=== PATIENT | male | born 1980 | race Caucasian/White ===

== ENCOUNTER 2022-02-09 17:18 | Emergency (ER) | payer MEDICARE, SELFPAY ==
[2022-02-09 17:33] VITALS: BP 145/89; PULSE 69; RESP 18; TEMP 37.1; O2SAT 98; BMI 28.8
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
== END 2022-02-09 19:11 | disposition home or self-care (01) ==
PROVIDERS: Emergency Provider Emergency Medicine; PCP Nurse Practitioner Family
DX: Z04.1 Encounter for examination and observation following transport accident (principal); T14.8XXA Other injury of unspecified body region, initial encounter; Z79.82 Long term (current) use of aspirin; F17.210 Nicotine dependence, cigarettes, uncomplicated; V49.40XA Driver injured in collision with unspecified motor vehicles in traffic accident, initial encounter
CPT/HCPCS: 71046; 72170; 99282

== ENCOUNTER 2022-05-31 13:00 | Emergency (ER) | payer MEDICARE, SELFPAY ==
--- NOTE | 2022-05-31 13:07 | XR_ITS ---
WS: [id number] Portable PA upright chest, 05/31/2022 Clinical Data: chest pain Comparison: Two-view chest, 02/09/2022. Findings: No nodules, masses or effusions are seen. The heart is normal. The pulmonary vascularity is not increased. No pneumonia or pneumothorax is seen. XR/XR chest 1V portable [id number] Impression: Negative chest.
--- NOTE | 2022-05-31 13:07 | ECG_ITS ---
[facility] Test Date: 2022-05-31 Pat Name: Jacobo Odom Department: Room: Gender: Male Town Manager: : 1980 Requested By: Katharine Khanna Order Number: [id number] Wilma MD: Aravind Wolfe M.D. Measurements Intervals [place] Rate: 52 P: 23 ME: 168 QRS: 26 QRSD: 94 T: 34 QT: 394 QTc: 369 Interpretive Statements SINUS BRADYCARDIA No previous ECG available for comparison Electronically Signed On 05-31-2022 18:14:51 CDT by Aravind Wolfe M.D. [id number]
[2022-05-31 13:08] VITALS: BP 136/78; PULSE 66; RESP 18; TEMP 36.9; O2SAT 99; BMI 26.4
--- NOTE | 2022-05-31 14:51 | W.ED.CHESTPA ---
HPI - Chest Pain General: Chief Complaint: Chest Pain Stated Complaint: Chest pains, Low heart rate, sob, arms numb Time Seen by Provider: 05/31/22 14:39 Source: patient Mode of arrival: ambulatory Limitations: no limitations History of Present Illness: 41-year-old male presents emergency room complaining of chest pain intermittently for the last 3 days. He also has been having some numbness in his arms. Patient has a history of a previous cerebral artery dissection he has no long-term sequela from that. He is reporting chest pain and left side of his chest at times going into his shoulder. He has no known history of coronary artery disease. He recently had been taking opioids and stopped he has been trying to increase his physical activity level he done a lot of anaerobic work in the past week. He is not have any chest pain with palpation across the chest. A week ago he had an episode with pain radiating into the jaw. Also had a few episodes was woken up in the middle the night both of his arms have felt numb. All the symptoms seem to resolve spontaneously with physical activity he has not had any increase in chest pain. He states he shoveled 15 tons of gravel and never had any chest pain earlier this week. MD complaint: chest pain Onset (ago): day(s) (4) Timing of current episode: episodic Prior episodes: Yes Onset: during rest Pain location: left chest Pain radiation: right arm, left arm, neck and jaw/teeth Severity: mild Quality: tightness, aching and heaviness Relieving factors: nothing Exacerbating factors: nothing Associated symptoms: Deny abdominal pain, diaphoresis, dyspnea, fever(s), leg edema, nausea, palpitations, sense of impending doom, syncope or vomiting Treatment prior to arrival: none Review of Systems Const: Denies: fever(s), chills, fatigue, malaise or diaphoresis ENMT: Denies: throat pain, ear or mastoid pain, nasal discharge or nasal congestion Card: Reports: chest pain; Denies: palpitations, irregular heart rhythm, edema, swelling of feet/ankles or syncope Resp: Denies: dyspnea, productive cough, non-productive cough or wheezing GI: Denies: abdominal pain, nausea or vomiting : Denies: flank pain, difficulty urinating, dysuria, urinary frequency or urinary urgency Musc: Reports: neck pain Skin/Breast: Denies: rash or pruritus [facility] ED PFSH: Medical History Brain aneurysm Chronic back pain Hypertension Hypokalemia Mitral valve prolapse Osteogenesis imperfecta Scoliosis Vertebral artery dissection Vitamin D deficiency Social History Smoking and tobacco status: current every day smoker cigarettes Alcohol intake: never Physical Exam Const: GENERAL APPEARANCE: cooperative and comfortable ORIENTATION/CONSCIOUSNESS: Yes awake, Yes oriented to person, Yes oriented to place and Yes oriented to time HENMT: COMMON NORMALS: normocephalic, atraumatic and hearing grossly normal bilaterally HEAD & SCALP: normocephalic and atraumatic Neck/C-Spine: COMMON NORMALS: no JVD Resp: COMMON NORMALS: normal respiratory effort, No retractions, No use of accessory muscles and clear to auscultation bilaterally AUSCULTATION: clear to auscultation bilaterally Cardio: COMMON NORMALS: no JVD, regular rate, regular rhythm and No murmurs present (Cardio) RATE: regular rate RHYTHM: regular rhythm GI: COMMON NORMALS: Soft to palpation and No hepatosplenomegaly present AUSCULTATION: Yes normoactive bowel sounds PALPATION: Yes Soft to palpation, No Tenderness to palpation present (GI), No Guarding due to palpation present (GI) and Yes No hepatosplenomegaly present Extremity: COMMON NORMALS: normal to inspection, capillary refill normal, no clubbing, cyanosis or edema, no calf tenderness and no pedal edema Neuro: SENSORIUM/ORIENTATION: Yes oriented to person, Yes oriented to place and Yes oriented to time Skin: COMMON NORMALS: no rashes or lesions noted GENERAL SKIN EXAM: no rashes or lesions noted Course Vital Signs: Vital signs: Vital Signs Temperature 98.5 F 05/31/22 13:08 Pulse Rate 66 05/31/22 13:08 Respiratory Rate 18 05/31/22 13:08 Blood Pressure 136/78 05/31/22 13:08 Pulse Oximetry 99 05/31/22 13:08 MDM - Chest Pain Medical Decision Making Labs imaging and EKGs reviewed no acute changes we will discharge patient home set up outpatient cardiac stress testing advised taking baby aspirin daily return if has problems. Medical Records I reviewed the patient's medical records. Lab Data I reviewed the patient's lab results. : 05/31/22 15:00 05/31/22 15:00 Radiology Impressions Chest X-Ray 05/31/22 13:07 Impression: Negative chest. Laboratory Results WBC 9.5 10^3/uL (4.0-10.0) 05/31/22 15:00 RBC 5.03 10^6/uL (4.1-5.3) 05/31/22 15:00 Hgb 15.4 g/dL (11.7-16.6) 05/31/22 15:00 Hct 45.2 % (42.0-52.0) 05/31/22 15:00 MCV 89.9 fl (80-94) 05/31/22 15:00 MCH 30.6 pg (28.0-34.0) 05/31/22 15:00 MCHC 34.1 g/dL (30.0-36.0) 05/31/22 15:00 RDW 12.5 % (12.1-15.1) 05/31/22 15:00 Plt Count 354 10^3/cmm (130-400) 05/31/22 15:00 MPV 8.5 fL (7.4-10.4) 05/31/22 15:00 Neut % (Auto) 67.5 % 05/31/22 15:00 Lymph % (Auto) 25.2 % 05/31/22 15:00 Woods % (Auto) 5.7 % 05/31/22 15:00 Eos % (Auto) 0.8 % 05/31/22 15:00 Baso % (Auto) 0.5 % 05/31/22 15:00 Neut # (Auto) 6.41 10^3/uL (1.8-7.7) 05/31/22 15:00 Lymph # (Auto) 2.4 10^3/uL (0.8-4.8) 05/31/22 15:00 Woods # (Auto) 0.5 10^3/uL (0.2-0.9) 05/31/22 15:00 Eos # (Auto) 0.1 10^3/uL (0.0-0.8) 05/31/22 15:00 Baso # (Auto) 0.1 10^3/uL (0.0-0.1) 05/31/22 15:00 Nucleated RBC % (auto) 0 % 05/31/22 15:00 Nucleated RBCs # 0.0 /100WBC 05/31/22 15:00 Sodium 137 mmol/L (136-145) 05/31/22 15:00 Potassium 3.8 mmol/L (3.5-5.1) 05/31/22 15:00 Chloride 98 mmol/L (98-107) 05/31/22 15:00 Carbon Dioxide 24 mmol/L (22-29) 05/31/22 15:00 Anion Gap 18.8 (5-19) 05/31/22 15:00 BUN 12 mg/dL (6-20) 05/31/22 15:00 Creatinine 0.7 mg/dL (0.7-1.2) 05/31/22 15:00 GFR Calculation 123.1 mL/min (90-130) 05/31/22 15:00 Glucose 92 mg/dL (65-115) 05/31/22 15:00 Calculated Osmolality 283 mOsm/kg (285-295) L 05/31/22 15:00 Calcium 9.0 mg/dL (8.5-10.5) 05/31/22 15:00 Total Bilirubin 0.3 mg/dL (0.15-1.2) 05/31/22 15:00 AST 16 U/L (0-40) 05/31/22 15:00 ALT 18 U/L (0-41) 05/31/22 15:00 Alkaline Phosphatase 95 IU/L (40-130) 05/31/22 15:00 Troponin T Baseline 6 ng/L (0-15) 05/31/22 15:00 Total Protein 7.2 g/dL (6.6-8.7) 05/31/22 15:00 Albumin 4.4 g/dL (3.5-5.2) 05/31/22 15:00 Globulin 2.8 g/dL (1.3-4.6) 05/31/22 15:00 Discharge Plan Discharge Patient Disposition: Home Clinical Impression: Atypical chest pain Condition: Stable Prescriptions: No Action morphine 15 mg tablet extended release 15 mg PO Q12H PRN (Reason: Pain) 0RF hydrocodone-acetaminophen 10-325 mg tablet 1 tab PO Q4H PRN (Reason: Pain) 0RF aspirin [Adult Low Dose Aspirin] 81 mg tablet,delayed release (DR/EC) 81 mg PO DAILY 0RF testosterone 20.25 mg/1.25 gram (1.62 %) gel in metered-dose pump See Rx Instructions .ROUTE .COMPLEX 0RF Rx Instructions: DIRECTED metoprolol succinate 50 mg tablet extended release 24 hr 25 mg PO DAILY 0RF lisinopril 10 mg tablet 5 mg PO DAILY 0RF hydrochlorothiazide 25 mg tablet 12.5 mg PO DAILY 0RF Discharge Orders: Discharge ED (Routine); Ordered 05/31/22 Ordered By: Parvez Wilson Referrals: Dakota Rojas FNP [Primary Care Provider] - Discharge Diet: Usual diet Discharge Activity: Limit activity as instructed Patient Instructions: Opioid Safety Activity Restrictions/Additional Instructions: Avoid exertional activity. transportation project manager will call make arrangements for her to have a graded exercise stress test. 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
[2022-05-31 15:02] LABS: Basophils # 0.1 10^3/uL (0.0-0.1); Basophils % 0.5 %; Eosinophils # 0.1 10^3/uL (0.0-0.8); Eosinophils % 0.8 %; Hematocrit 45.2 % (42.0-52.0); Hemoglobin 15.4 g/dL (11.7-16.6); Lymphocytes # 2.4 10^3/uL (0.8-4.8); Lymphocytes % 25.2 %; Mean Corpuscular HGB Conc 34.1 g/dL (30.0-36.0); Mean Corpuscular Hemoglobin 30.6 pg (28.0-34.0); Mean Corpuscular Volume 89.9 fl (80-94); Mean Platelet Volume 8.5 fL (7.4-10.4); Monocytes # 0.5 10^3/uL (0.2-0.9); Monocytes % 5.7 %; Neutrophils # 6.41 10^3/uL (1.8-7.7); Neutrophils % 67.5 %; Nucleated Red Blood Cells % 0 %; Platelet Count 354 10^3/cmm (130-400); Red Blood Count 5.03 10^6/uL (4.1-5.3); Red Cell Distribution Width 12.5 % (12.1-15.1); White Blood Count 9.5 10^3/uL (4.0-10.0)
--- NOTE | 2022-05-31 15:07 | ECG_ITS ---
[facility] Test Date: 2022-05-31 Pat Name: Jacobo Odom Department: Room: Gender: Male Director Of Safety: : 1980 Requested By: Katharine Khanna Order Number: [id number] Wilma MD: Aravind Wolfe M.D. Measurements Intervals [place] Rate: 52 P: 23 IN: 168 QRS: 26 QRSD: 94 T: 34 QT: 394 QTc: 369 Interpretive Statements SINUS BRADYCARDIA No previous ECG available for comparison Electronically Signed On 05-31-2022 18:18:51 CDT by Aravind Wolfe M.D. [id number]
[2022-05-31 15:21] LABS: Alanine Aminotransferase 18 U/L (0-41); Albumin Level 4.4 g/dL (3.5-5.2); Alkaline Phosphatase 95 IU/L (40-130); Aspartate Amino Transferase 16 U/L (0-40); Blood Urea Nitrogen 12 mg/dL (6-20); Carbon Dioxide 24 mmol/L (22-29); Chloride 98 mmol/L (98-107); Globulin 2.8 g/dL (1.3-4.6); Glomerular Filtration Rate 123.1 mL/min (90-130); Glucose 92 mg/dL (65-115); Osmolality Calculated 283 mOsm/kg (285-295); Sodium 137 mmol/L (136-145); Total Bilirubin 0.3 mg/dL (0.15-1.2); Total Protein 7.2 g/dL (6.6-8.7)
[2022-05-31 15:22] LABS: Troponin(5th) Baseline 6 ng/L (0-15)
[2022-05-31 15:26] LABS: Anion Gap 18.8 (5-19); Potassium 3.8 mmol/L (3.5-5.1)
--- NOTE | 2022-06-04 09:41 | DCPLANNER ---
Addendum entered by Mara Escobar 12/03/22 12:44: Patient had a stress test scheduled - patient did not attend appointment Original Note: commercial account manager had message to schedule an outpatient stress test for patient. commercial account manager faxed signed order to centralized scheduling, who will call patient with appointment information.
== END 2022-05-31 16:24 | disposition home or self-care (01) ==
PROVIDERS: Physician Assistant; Emergency Provider Family Medicine; PCP Nurse Practitioner Family
DX: R07.89 Other chest pain (principal); I10 Essential (primary) hypertension
CPT/HCPCS: 71045; 80053; 84484; 85025; 93005; 99285

== ENCOUNTER → 2023-09-15 10:18 | Outpatient (BNVA) | payer MEDICARE, SELFPAY | PROVIDERS: PCP Nurse Practitioner; Referring Provider Family Medicine; Visit Provider Internal Medicine Cardiovascular Disease | DX: R07.89 Other chest pain (principal) | CPT/HCPCS: 93005 ==

== ENCOUNTER 2023-09-15 11:54 | Emergency (ER) | payer MEDICARE, SELFPAY ==
[2023-09-15 12:01] VITALS: BMI 27.2
[2023-09-15 12:02] VITALS: BP 145/87; PULSE 84; RESP 16; TEMP 37.1; O2SAT 98
--- NOTE | 2023-09-15 12:26 | XR_ITS ---
WS: [id number] Exam: XR femur LT min 2V* [id number] Date/Time of Exam: 09/15/2023 12:42 PM Reason For Exam: injury No acute fracture noted. Old femoral fractures identified with intramedullary connie. Soft tissues are u nremarkable. IMPRESSION: 1. No acute fracture. Old fracture deformities with femoral hardware.
--- NOTE | 2023-09-15 12:57 | ED_ITS ---
HPI - Extremity Injury (Lower) General: Chief Complaint: Extremity Injury, Lower Stated Complaint: left leg injury Time Seen by Provider: 09/15/23 12:36 Source: patient Mode of arrival: ambulatory (with crutches) Limitations: no limitations History of Present Illness: Patient is a 43-year-old male who presents to ED today with a complaint of left upper leg pain that he sustained following a fall approximately 3 days ago. Patient states he has a history of osteogenesis imperfecta and has bilateral femoral rods. Patient states he is concerned he possibly fractured his distal femur around his connie. Patient has been wearing his hinged brace as well as using crutches. complaint: thigh injury Onset (ago): day(s) Injury: Left: thigh Place: home Severity: moderate Relieving factors: immobilization Exacerbating factors: weight bearing, movement and palpation Context: fall Associated symptoms: Reports inability to bear weight Other symptoms: none Treatments prior to arrival: splint Review of Systems Musc: Reports: extremity pain; Denies: neck pain, back pain, extremity swelling, joint pain, joint swelling, joint redness or joint warmth Neuro: Denies: numbness in extremities or sensory changes PFSH ED PFSH: Medical History Brain aneurysm Chronic back pain Hypertension Hypokalemia Mitral valve prolapse Osteogenesis imperfecta Scoliosis Vertebral artery dissection Vitamin D deficiency Social History Smoking and tobacco/nicotine status: current every day tobacco/nicotine user cigarettes Quit status (tobacco/nicotine): has quit using Year quit tobacco: 2013 Alcohol intake: never Substance/Drug Use: former Physical Exam Const: COMMON NORMALS: no acute distress, patient oriented x3, no limitations and alert GENERAL APPEARANCE: cooperative Extremity: COMMON NORMALS: capillary refill normal, no joint enlargement, no clubbing, cyanosis or edema, no calf tenderness and no pedal edema GENERAL: Yes normal exam except as noted LEFT LOWER EXTREMITY: Yes upper leg (TTP distal femur; no bony abnormality appreciated) Left upper leg: Yes neurovascular exam (normal) OTHER: normal L hip/knee examination Neuro: COMMON NORMALS: patient oriented x3, moves all extremities, no focal motor deficits and no sensory deficits noted SENSORIUM/ORIENTATION: Yes alert Course Vital Signs: Vital signs: Vital Signs Temperature 98.8 F 09/15/23 12:02 Pulse Rate 84 09/15/23 12:02 Respiratory Rate 16 09/15/23 12:02 Blood Pressure 145/87 09/15/23 12:02 Pulse Oximetry 98 09/15/23 12:02 Oxygen Delivery Me thod Room Air, Nasal C annula 09/15/23 12:02 MDM - Extremity Injury (Lower) Medical Decision Making XR negative. Patient will be recommended to continue using brace/crutches as needed. He can follow up with PCP or orthopedics if symptoms do not improve with conservative therapies. All radiology interpretation(s) finalized by discharge Discharge Plan Discharge Patient Disposition: Home Clinical Impression: Injury of left leg Qualifiers: Encounter type: initial encounter Qualified Code(s): S89.92XA - Unspecified injury of left lower leg, initial encounter Condition: Stable Prescriptions: No Action aspirin [Adult Low Dose Aspirin] 81 mg tablet,delayed release (DR/EC) 81 mg PO DAILY nitroglycerin 0.3 mg tablet, sublingual 0.3 mg sublingual Q5M PRN (Reason: chest pain) Qty: 30 0RF Rx Instructions: do not exceed 3 doses per episode testosterone 20.25 mg/1.25 gram (1.62 %) gel in metered-dose pump See Rx Instructions .ROUTE .COMPLEX Rx Instructions: DIRECTED lisinopril 10 mg tablet 5 mg PO DAILY Discharge Orders: Discharge ED (Routine); Ordered 09/15/23 Ordered By: Katharine Khanna Referrals: Rosemary Lemus, SAW OFFBEARER [Primary Care Provider] - Coding Level of Care Code ED 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
== END 2023-09-15 14:05 | disposition home or self-care (01) ==
PROVIDERS: Emergency Provider Physician Assistant; PCP Nurse Practitioner
DX: S89.92XA Unspecified injury of left lower leg, initial encounter (principal); Z79.82 Long term (current) use of aspirin; F17.210 Nicotine dependence, cigarettes, uncomplicated; I10 Essential (primary) hypertension; W19.XXXA Unspecified fall, initial encounter; R07.89 Other chest pain; I34.1 Nonrheumatic mitral (valve) prolapse; I67.1 Cerebral aneurysm, nonruptured
CPT/HCPCS: 73552; 99204; 99283

== ENCOUNTER 2023-12-23 11:34 | Emergency (ER) | payer MEDICARE, SELFPAY ==
[2023-12-23] VITALS (7 sets, daily range): BP systolic 120–169; BP diastolic 83–108; PULSE 61–98; RESP 16–18; TEMP 36.6; O2SAT 95–97; BMI 27.9
--- NOTE | 2023-12-23 11:52 | ED_ITS ---
HPI - Male Genitourinary 2 General: Chief complaint: Urogenital-Male Stated complaint: left side back pain Time Seen by Provider: 12/23/23 11:50 History of Present Illness: 43-year-old male presents emergency depa rtment with complaints of left flank and low back pain for the previous 5 days. He states he is also had intermittent nausea. He states he has a history of osteogenesis imperfecta with multiple fractures. He states that his pain to his back is a 5 out of 10. He states it is a dull aching pain Review of Systems 2 General: Reports: 10 or more systems reviewed and unremarkable except in HPI and below Musc: Reports: back pain PFSH ED 2 PFSH: Medical History Hypertension Osteogenesis imperfecta Mitral valve prolapse Chronic back pain Vertebral artery dissection Scoliosis Brain aneurysm Hypokalemia Vitamin D deficiency Social History Smoking and tobacco/nicotine status: current every day tobacco/nicotine user cigarettes Quit status (tobacco/nicotine): has quit using Year quit tobacco: 2013 Alcohol intake: never Substance/Drug Use: former Physical Exam 2 Narrative: EXAM NARRATIVE: Constitutional: the patient appears well nourished and of normal development. Vital signs as documented. No acute distress at present. Alert and oriented-to person, place, time and situation. Head, eyes, ears, nose, mouth, throat: Normocephalic, atraumatic. Pupils-equal, round, reactive to light. No scleral icterus. Normal-appearing external ears. Normal appearing nasal turbinates, no drainage. No obvious oral lesions, posterior oropharynx without erythema or exudates. Neck: Supple, trachea is midline, no lymphadenopathy, no jugular venous distension, thyromegaly, or carotid bruits. Carotid upstrokes are brisk bilaterally. Lungs: clear to auscultation to all lung shaffer. Symmetrical rise and fall of chest, no obvious signs of increased work of breathing at present. Cardiac: Regular rate and rhythm, positive S1, S2. No murmurs, rubs or gallops that I can appreciate Abdomen: Soft, non-tender to palpation, normal active bowel sounds to all quadrants. No palpable masses, no organomegaly and abdominal bruits. Extremities: 2+ pulses in the upper extremities that are equal bilaterally, 2+ pulses in the lower extremities that are equal bilaterally. Non-edematous. Moves all extremities well, sensation to all extremities are noted. Skin: Warm, dry, intact. Back: Symmetrical, normal alignment, no crepitus, no palpable step-offs, there is edema to the left flank area with no obvious signs of trauma. Course 2 Vital Signs: Vital signs: Vital Signs Temperature 97.9 F 12/23/23 11:47 Pulse Rate 98 12/23/23 12:13 Respiratory Rate 18 12/23/23 12:13 Blood Pressure 157/108 12/23/23 12:13 Pulse Oximetry 96 12/23/23 12:13 Oxygen Delivery Me thod Room Air 12/23/23 11:47 MDM - Male Medical Decision Making Physical exam completed and documented, CT scan findings discussed with the patient. I did order a CBC and CMP to evaluate the patient's infectious status and renal function. Medical Records I reviewed the patient's medical records. Lab Data I reviewed the patient's lab results. 12/23/23 12:07 12/23/23 12:07 Laboratory Results WBC 9.48 10^3/uL (3.29-11.43) 12/23/23 12:07 RBC 5.36 10^6/uL (3.85-5.65) 12/23/23 12:07 Hgb 16.60 g/dL (11.27-16.99) 12/23/23 12:07 Hct 47.7 % (37-53) 12/23/23 12:07 MCV 89.0 fl (82-101) 12/23/23 12:07 MCH 31.0 pg (27-33) 12/23/23 12:07 MCHC 34.8 g/dL (30-55) 12/23/23 12:07 RDW 11.9 % (12.1-15.1) L 12/23/23 12:07 Plt Count 369 10^3/cmm (157-399) 12/23/23 12:07 MPV 8.3 fL (7.4-10.4) 12/23/23 12:07 Neut % (Auto) 73.0 % 12/23/23 12:07 Lymph % (Auto) 19.8 % 12/23/23 12:07 [place] % (Auto) 6.2 % 12/23/23 12:07 Eos % (Auto) 0.4 % 12/23/23 12:07 Baso % (Auto) 0.4 % 12/23/23 12:07 Neut # (Auto) 6.91 10^3/uL (1.8-7.7) 12/23/23 12:07 Lymph # (Auto) 1.9 10^3/uL (0.8-4.8) 12/23/23 12:07 [place] # (Auto) 0.6 10^3/uL (0.2-0.9) 12/23/23 12:07 Eos # (Auto) 0.0 10^3/uL (0.0-0.8) 12/23/23 12:07 Baso # (Auto) 0.0 10^3/uL (0.0-0.1) 12/23/23 12:07 Nucleated RBC % (auto) 0 % 12/23/23 12:07 Nucleated RBCs # 0.0 /100WBC 12/23/23 12:07 Sodium 137 mmol/L (136-145) 12/23/23 12:07 Potassium 3.9 mmol/L (3.5-5.1) 12/23/23 12:07 Chloride 99 mmol/L (98-107) 12/23/23 12:07 Carbon Dioxide 25 mmol/L (22-29) 12/23/23 12:07 Anion Gap 16.9 (5-19) 12/23/23 12:07 BUN 10 mg/dL (6-20) 12/23/23 12:07 Creatinine 0.7 mg/dL (0.7-1.2) 12/23/23 12:07 GFR Calculation 122.0 mL/min (90-130) 12/23/23 12:07 Glucose 110 mg/dL (65-115) 12/23/23 12:07 Calculated Osmolality 284 mOsm/kg (285-295) L 12/23/23 12:07 Calcium 9.7 mg/dL (8.5-10.5) 12/23/23 12:07 Total Bilirubin 0.3 mg/dL (0.15-1.2) 12/23/23 12:07 AST 17 U/L (0-40) 12/23/23 12:07 ALT 25 U/L (0-41) 12/23/23 12:07 Alkaline Phosphatase 103 U/L (40-130) 12/23/23 12:07 Total Protein 8.0 g/dL (6.6-8.7) 12/23/23 12:07 Albumin 4.8 g/dL (3.5-5.2) 12/23/23 12:07 Globulin 3.2 g/dL (1.3-4.6) 12/23/23 12:07 Urine Color Yellow (Yellow) 12/23/23 11:34 Urine Appearance Clear (CLEAR) 12/23/23 11:34 Urine pH 6 (5-7) 12/23/23 11:34 Ur Specific [place] 1.020 (1.005-1.030) 12/23/23 11:34 Urine Protein Neg (Negative) 12/23/23 11:34 Urine Glucose (UA) Norm (Normal) 12/23/23 11:34 Urine Ketones Negative (Negative) 12/23/23 11:34 Urine Blood 2+ (Negative) H 12/23/23 11:34 Urine Nitrate Negative (Negative) 12/23/23 11:34 Urine Bilirubin Neg (Negative) 12/23/23 11:34 Urine Urobilinogen Norm mg/dL (Negative) 12/23/23 11:34 Ur Leukocyte Esterase Negative (Negative) 12/23/23 11:34 Urine RBC 0-4 /hpf (0-2) H 12/23/23 11:34 Urine WBC None /hpf (0-5) 12/23/23 11:34 Ur Squamous Epith Cells 0-4 /hpf (0-5) H 12/23/23 11:34 Amorphous Sediment Not Reportable 12/23/23 11:34 Urine Bacteria None /hpf (NONE) 12/23/23 11:34 Urine Mucus None /hpf 12/23/23 11:34 All radiology interpretation(s) finalized by discharge Discharge Plan Discharge Patient Disposition: Home Clinical Impression: Hematuria, Low back pain Condition: Stable Prescriptions: New naproxen 500 mg tablet 500 mg PO Q12H PRN (Reason: pain) Qty: 20 0RF cyclobenzaprine 10 mg tablet 10 mg PO Q8H Qty: 14 0RF No Action aspirin [Adult Low Dose Aspirin] 81 mg tablet,delayed release (DR/EC) 81 mg PO DAILY nitroglycerin 0.3 mg tablet, sublingual 0.3 mg sublingual Q5M PRN (Reason: chest pain) Qty: 30 0RF Rx Instructions: do not exceed 3 doses per episode testosterone 20.25 mg/1.25 gram (1.62 %) gel in metered-dose pump See Rx Instructions .ROUTE .COMPLEX Rx Instructions: DIRECTED lisinopril 10 mg tablet 10 mg PO DAILY omeprazole 40 mg capsule,delayed release(DR/EC) 40 mg PO DAILY Discharge Orders: Discharge ED (Routine); Ordered 12/23/23 Ordered By: Manolo Torre Referrals: Rosemary Lemus FNP [Primary Care Provider] - Discharge Diet: Advance as tolerated Discharge Activity: Resume usual activity Patient Instructions: Opioid Safety, Pain Management Activity Restrictions/Additional Instructions: Activity Restrictions/Additional Instructions: Thank you for choosing [facility] for your healthcare needs today. Please realize that you were seen in the Emergency Department and that we are providing you with an emergency medical screening exam and this may not be a complete and all inclusive of all the testing and or medical work-up that you may need to determine your ailment or severity of your illness. It is very important that you follow-up as instructed with your Primary care provider or Specialist for additional evaluation and to discuss your medical treatment plan. Coding Level of Care Code ED [employer]ographic Equipment As[employer]er for Magalys Bland
[2023-12-23] MEDS: sodium chloride 0.9% 1,000 ML 999 ML IV (12:09)
[2023-12-23 12:22] LABS: Basophils % 0.4 %; Eosinophils % 0.4 %; Hematocrit 47.7 % (37-53); Lymphocytes # 1.9 10^3/uL (0.8-4.8); Lymphocytes % 19.8 %; Mean Corpuscular HGB Conc 34.8 g/dL (30-55); Mean Platelet Volume 8.3 fL (7.4-10.4); Monocytes # 0.6 10^3/uL (0.2-0.9); Monocytes % 6.2 %; Neutrophils # 6.91 10^3/uL (1.8-7.7); Nucleated Red Blood Cells % 0 %; Platelet Count 369 10^3/cmm (157-399); Red Blood Count 5.36 10^6/uL (3.85-5.65); Red Cell Distribution Width 11.9 % (12.1-15.1); White Blood Count 9.48 10^3/uL (3.29-11.43)
[2023-12-23 12:38] LABS: Alanine Aminotransferase 25 U/L (0-41); Albumin Level 4.8 g/dL (3.5-5.2); Alkaline Phosphatase 103 U/L (40-130); Anion Gap 16.9 (5-19); Aspartate Amino Transferase 17 U/L (0-40); Blood Urea Nitrogen 10 mg/dL (6-20); Calcium 9.7 mg/dL (8.5-10.5); Carbon Dioxide 25 mmol/L (22-29); Chloride 99 mmol/L (98-107); Globulin 3.2 g/dL (1.3-4.6); Glucose 110 mg/dL (65-115); Osmolality Calculated 284 mOsm/kg (285-295); Potassium 3.9 mmol/L (3.5-5.1); Sodium 137 mmol/L (136-145); Total Bilirubin 0.3 mg/dL (0.15-1.2)
[2023-12-23 13:27] LABS: Blood Urine 2+ (Negative); Glucose Urine UA Norm (Normal); Ketones Urine Negative (Negative); Protein Urine Neg (Negative); Urine Appearance Clear (CLEAR); Urine Color Yellow (Yellow); pH Urine 6 (5-7)
[2023-12-23 13:28] LABS: Add Urine Microscopic? YES; Bilirubin Urine Neg (Negative); Leukocyte Esterase Urine Negative (Negative); Nitrate Urine Negative (Negative); Urobilinogen Urine Norm (Negative)
[2023-12-23 13:30] LABS: Add Urine Culture? No; RBC Urine 0-4 /hpf (0-2); Squamous Epithelial Cell Urine 0-4 /hpf (0-5)
--- NOTE | 2023-12-23 13:49 | CT_ITS ---
WS: [id number] CT ABDOMEN AND PELVIS NONCONTRAST HISTORY: left flank pain and swelling TECHNIQUE: Imaging performed through the abdomen and pelvis. Coronal and sagittal reformats are submi tted. All CT scans at [facility] use at least one of these dose optimization techniques: auto mated exposure control; mA and/or kV adjustment per patient size (includes targeted exams where dose is matched to clinical indication); or iterative reconstruction. DLP: 472.73 mGy.cm COMPARISON: 04/08/2018 Lower thorax: Lung bases are clear. Visualized heart is normal. No hiatal hernia. Liver: Normal size liver. No mass or bile duct dilatation. Gallbladder: Normal gallbladder. No pericholecystic fluid or cholelithiasis. No gallbladder wall thic kening. Pancreas: Normal size and attenuation. Normal pancreatic duct. No pancreatitis or mass. Spleen: Normal. Adrenal glands: Normal. No mass. Right kidney: Normal size kidney with no mass or hydronephrosis. Left kidney: Normal size kidney with no mass or hydronephrosis. Aorta: Mild atherosclerosis abdominal aorta with no aneurysm. No free fluid, intraperitoneal air or significant lymphadenopathy. GI tract: Normal noncontrast imaging of the stomach, small bowel and colon. No obstruction or wall th ickening. Normal appendix. Abdominal wall: Negative. No hernia. Pelvis: No free fluid or adenopathy. Metallic foreign body with artifact soft tissues surrounding the RIGHT hip. Osseous structures: L5 anterolisthesis by 10 mm with bilateral pars defects. Prior ORIF RIGHT hip. In tramedullary connie in the LEFT femur. IMPRESSION: 1. No acute abdominopelvic abnormalities. 2. No renal calcifications or obstruction. 3. Normal appendix.
== END 2023-12-23 15:27 | disposition home or self-care (01) ==
PROVIDERS: Emergency Provider Internal Medicine; PCP Nurse Practitioner
DX: M54.50 Low back pain, unspecified (principal); R31.9 Hematuria, unspecified; Z79.82 Long term (current) use of aspirin; I10 Essential (primary) hypertension; F17.210 Nicotine dependence, cigarettes, uncomplicated
CPT/HCPCS: 74176; 80053; 81001; 85025; 96360; 96361; 99285; J7030

== ENCOUNTER 2024-01-30 13:44 | Outpatient (CLI) | payer MEDICARE, SELFPAY ==
--- NOTE | 2024-01-30 13:46 | MR_ITS ---
WS: [id number] MRI LUMBAR SPINE NONCONTRAST HISTORY: DORSALGIA COMPARISON: 12/18/2009, CT 12/23/2023 TECHNIQUE: Sagittal and axial multisequence imaging is submitted. Marked straightening of the normal lumbar spine. There is an area of increased kyphosis at L5-S1. L5 anterolisthesis by 9 mm. L5 vertebral bodies small caliber. Patient has known bilateral pars defects at L5 with the anterolisthesis. No fractures. Remaining disc spaces are well-maintained. Conus terminates normally at L1. L1-L2: No central stenosis. Mild bilateral foraminal narrowing. L2-L3: Mild disc bulging and facet arthritis. Mild foraminal narrowing. L3-L4: Mild annular disc bulging with facet and ligamentum flavum hypertrophy. There is very slight e ncroachment upon the subarticular recesses and mild bilateral foraminal stenosis. L4-L5: Mild annular disc bulging with a central disc protrusion. Advanced facet joint arthritis and l igamentum flavum arthritis. There is disc encroachment upon the L5 nerve roots in the subarticular re cesses. Additional mild bilateral foraminal stenosis. L5-S1: Annular disc bulging with anterolisthesis of L5. There is disc encroachment upon the S1 nerve roots in the subarticular recesses. Marked bilateral facet joint arthritis. Severe bilateral foramina l stenosis. Completely effaced fat in the RIGHT foramen. There is disc contacting both the exiting L5 and the traversing S1 nerve roots. Since the prior study from 2009 there has been a progression of a nterolisthesis and foraminal stenosis. IMPRESSION: 1. Grade 1 spondylolisthesis of L5 with spondylolysis. 2. Progression of bilateral subarticular recess and foraminal stenosis at L5-S1. Severe stenosis now present involving the foramina. Significant disc encroachment upon the L5 and S1 nerve roots. 3. Central disc protrusion at L4-5. Disc and facet joint arthritis encroaching upon the subarticular recesses and the foramina. Mild subarticular recess and foraminal stenosis. 4. Mild bilateral foraminal stenosis at L1-2, L2-3 and L3-4. Additional slight subarticular recess e ncroachment at L3-4.
== END 2024-01-30 13:45 | disposition home or self-care (01) ==
LOC: RAD 13:44
PROVIDERS: PCP Family Medicine; Visit Provider Family Medicine
DX: M43.16 Spondylolisthesis, lumbar region (principal); M48.07 Spinal stenosis, lumbosacral region; M51.26 Other intervertebral disc displacement, lumbar region
CPT/HCPCS: 72148

== ENCOUNTER 2024-02-16 14:27 | Outpatient (CLI) | payer MEDICARE, SELFPAY ==
--- NOTE | 2024-02-16 14:30 | USCV_ITS ---
Jacobo Odom Age: 43 Gender: M : 1980 Exam Date: 02/16/2024 14:42 Ordering Phys: Ena Martin Technologist: CT Exam [place] [facility] [place] Indication: cp BP: 140 / 89 HR: 82 Rhythm: Sinus Technical Quality: Adequate MEASUREMENTS (Male / Female) Normal Values 2D ECHO LVOT Diameter 2.0 cm LV Ejection Fraction MOD 2C 62.1 % LV Ejection Fraction 2C AL 62.8 % LA Diameter 2.8 cm RA Systolic Volume 4C AL 45.2 ml RA Systolic Volume 4C MOD 44.2 ml Aorta at Sinotubular Diameter 2.4 cm IVC Diameter 1.3 cm M-MODE LA Ao Ratio MM 1.6 AV Cusp Separation MM 2.1 cm DOPPLER AV Peak Velocity 106.0 cm/s LVOT Peak Velocity 84.0 cm/s AV Area Cont Eq vti 3.7 cm squared AV Area Cont Eq pk 2.6 cm squared MV Peak Velocity 75.0 cm/s MV Area PHT 2.8 cm squared Mitral E to A Ratio 0.9 TR Peak Velocity 259.0 cm/s TR Peak Gradient 26.8 mmHg Right Atrial Pressure 3.0 mmHg Pulmonary Artery Systolic Pressu 29.8 mmHg PV Peak Velocity 109.0 cm/s FINDINGS Left Ventricle Normal left ventricular size and systolic function, EF 62%.no regional wall motion abnormalities. Technically somewhat difficult study because of poor apical window Right Ventricle The right ventricle is normal in size and function. Right Atrium The right atrium is normal in size. Left Atrium The left atrium is normal in size. Mitral Valve Trace mitral valve regurgitation. Aortic Valve Tricuspid aortic leaflet Tricuspid Valve No gross abnormalities noted Pulmonic Valve Structurally normal pulmonic valve without significant stenosis. There is no pulmonic regurgitation. Pericardium No thickening/calcification of the pericardium. Aorta Normal ascending aorta dimension. IVC Normal inferior vena cava. CONCLUSIONS Normal left ventricular size and systolic function, EF 62%.no regional wall motion abnormalities. Technically somewhat difficult study because of poor apical window. Trace mitral valve regurgitation. There is no pericardial effusion. There are no intracardiac masses. No similar previous studies are available for comparison Dr Arian Hendrix MD [facility] (Electronically Signed) Final Date: 19 February 2024 21:08 S
== END 2024-02-16 14:28 | disposition home or self-care (01) ==
LOC: RAD 14:30
PROVIDERS: PCP Family Medicine; Visit Provider Nurse Practitioner Family
DX: I34.1 Nonrheumatic mitral (valve) prolapse (principal); I10 Essential (primary) hypertension; R07.89 Other chest pain
CPT/HCPCS: 93306

== ENCOUNTER → 2024-02-20 10:20 | Outpatient (BNVA) | payer MEDICARE, SELFPAY | PROVIDERS: PCP Family Medicine; Visit Provider Nurse Practitioner Family | DX: I10 Essential (primary) hypertension (principal); F17.210 Nicotine dependence, cigarettes, uncomplicated | CPT/HCPCS: 99213 ==

== ENCOUNTER 2024-07-20 12:59 | Emergency (ER) | payer MEDICARE, SELFPAY ==
--- NOTE | 2024-07-20 13:01 | XR_ITS ---
WS: [id number] Exam: XR chest 1V portable [id number] Date/Time of Exam: 07/20/2024 1:09 PM Reason For Exam: cp Comparison 05/31/2022. The lungs are clear and fully expanded. Normal cardiomediastinal silhouette. No pleural effusions. Ol d nonunion RIGHT clavicle fracture noted. XR/XR chest 1V portable [id number] IMPRESSION: 1. Negative chest.
[2024-07-20 13:16] VITALS: BP 132/90; PULSE 85; RESP 14; TEMP 36.8; O2SAT 98
--- NOTE | 2024-07-20 14:01 | ED_ITS ---
HPI - General Adult 2 General: Chief complaint: Neck Pain/Injury Stated complaint: neck pain/ left shoulder/ arm pain Time Seen by Provider: 07/20/24 13:04 Source: patient Mode of arrival: ambulatory Limitations: no limitations History of Present Illness: Patient is a nice 44-year-old male with a history of osteogenesis imperfecta here for multiple medical complaints. Patient states he has been having intermittent chest pain for quite some time now . He states he has been evaluated by cardiology and has a normal echocardiogram and EKG but is concerned that he might need more testing to evaluate for a blockage . Patient states today he is having some mild neck discomfort and pain into the left shoulder and mainly wants to make sure it is not a heart attack . He has been doing the Bowflex and push-ups and also thinks maybe he possibly exacerbated symptoms with that. He has had intermittent neck pains as well as intermittent headaches for several weeks. He has a neurologist in [place] that he sees. He states he is scheduled for MRIs of his head, cervical spine, thoracic spine in 2 days in [place]. He currently is not having any chest pain. Does not complain of shortness of breath or difficulty breathing. Wonders if symptoms could be related to anxiety. Onset (ago): month(s) Pain Consistency: intermittent Relieving factors: none Exacerbating factors: none Associated symptoms: Reports chest pain and headache(s); Deny dyspnea, malaise, nausea, rash, palpitations, syncope or vomiting Treatments prior to arrival: none Related Data Home Medications Medication Instructions Recorded Confirmed aspirin 81 mg tablet,delayed 81 mg PO QAM 07/03/20 07/20/24 release (Adult Low Dose Aspirin) testosterone See Rx Instructions .Route .COMPLEX 05/31/22 07/20/24 omeprazole 40 mg capsule,delayed 40 mg PO DAILY 12/23/23 07/20/24 release lisinopril 20 mg tablet 20 mg PO DAILY 07/20/24 07/20/24 Allergies Allergy/AdvReac Type Severity Reaction Status Date / Time codeine Allergy Intermediate aldy-hives Verified 02/20/24 10:29 meperidine [From Demerol] Allergy Intermediate ALGY-Hives Verified 02/20/24 10:29 tramadol Allergy Unknown Unknown Verified 02/20/24 10:29 Opioids-Methadone and Related Allergy Unknown Verified 03/29/24 10:29 methadone AdvReac Intermediate ADR-Nausea Verified 02/20/24 10:29 Review of Systems 2 Const: Denies: fever(s), chills, body aches, fatigue or malaise Eyes: Denies: change in vision or blurry vision Card: Reports: chest pain; Denies: palpitations, irregular heart rhythm, edema, swelling of feet/ankles, lightheadedness, syncope, pre-syncope, dyspnea on exertion, orthopnea, leg pain with exertion or acrocyanosis Resp: Denies: dyspnea, productive cough, non-productive cough, wheezing, pain on inspiration, change in phlegm color, hemoptysis or chest congestion GI: Denies: abdominal pain, nausea, vomiting, heartburn or diarrhea : Denies: flank pain, difficulty urinating, dysuria, urinary frequency, urinary urgency or urinary hesitancy Musc: Reports: neck pain (bilateral L>R), back pain (chronic back pains with his OI) and joint pain (L shoulder); Denies: extremity pain, extremity swelling or joint swelling Skin/Breast: Denies: rash Neuro: Reports: headache(s); Denies: numbness in extremities, weakness in extremities, sensory changes, difficulty walking or dizziness PFSH ED 2 PFSH: Medical History Hypertension Osteogenesis imperfecta Mitral valve prolapse Chronic back pain Vertebral artery dissection Scoliosis Brain aneurysm Hypokalemia Vitamin D deficiency Social History Smoking and tobacco/nicotine status: current every day tobacco/nicotine user cigarettes Quit status (tobacco/nicotine): has quit using Year quit tobacco: 2013 Alcohol intake: never Substance/Drug Use: former Physical Exam 2 Const: COMMON NORMALS: no acute distress, patient oriented x3, no limitations, healthy appearing, alert and well nourished GENERAL APPEARANCE: cooperative ORIENTATION/CONSCIOUSNESS: Yes awake, Yes oriented to person, Yes oriented to place and Yes oriented to time OTHER: Short stature consistent with his OI HENMT: COMMON NORMALS: normocephalic and atraumatic HEAD & SCALP: normal to inspection, normocephalic and atraumatic FACE & SINUS: normal facial exam and face symmetric Eye: COMMON NORMALS: Equal, round and reactive pupils present GENERAL EYE: appearance normal, both eyes and all related structures and normal light reflex PUPIL: Yes Equal, round and reactive pupils present DIRECT OPHTHALMOSCOPY: Yes normal light reflex Neck/C-Spine: COMMON NORMALS: full ROM, no lymphadenopathy and no meningeal signs GENERAL: Yes normal visual inspection, No anterior neck swelling and No submandibular swelling CERVICAL SPINE: Yes cervical ROM normal, No Cervical spine tenderness, No step off deformity and Yes Paracervical muscle tenderness Chest: COMMONS NORMALS: normal inspection of the chest and normal palpation of entire chest wall Resp: COMMON NORMALS: normal respiratory effort and clear to auscultation bilaterally AUSCULTATION: clear to auscultation bilaterally Cardio: COMMON NORMALS: regular rate and regular rhythm RATE: regular rate RHYTHM: regular rhythm Extremity: COMMON NORMALS: normal to inspection, full ROM, capillary refill normal, no joint enlargement, no clubbing, cyanosis or edema, no calf tenderness and no pedal edema GENERAL: Yes normal exam except as noted LEFT UPPER EXTREMITY: Yes shoulder joint (mild soreness to musculature) Neuro: ALONZO COMA SCALE: document GCS findings Fountain coma scale eye opening: Spontaneous Alonzo coma scale verbal response: Orientated Alonzo coma scale motor response: Obey commands Fountain coma scale total score: 15 COMMON NORMALS: patient oriented x3, CN's II-XII intact bilaterally, moves all extremities, no focal motor deficits and no sensory deficits noted S ENSORIUM/ORIENTATION: Yes alert, Yes oriented to person, Yes oriented to place and Yes oriented to time MENINGEAL SIGNS: Yes no meningeal signs Skin: COMMON NORMALS: no rashes or lesions noted GENERAL SKIN EXAM: no rashes or lesions noted Course 2 Vital Signs: Vital signs: Vital Signs Temperature 98.3 F 07/20/24 13:16 Pulse Rate 85 07/20/24 13:16 Respiratory Rate 14 07/20/24 13:16 Blood Pressure 132/90 07/20/24 13:16 Pulse Oximetry 98 07/20/24 13:16 Oxygen Delivery Me thod Room Air 07/20/24 13:16 [facility] - General Adult Medical Decision Making Patient is a nice 44-year-old male here for multiple medical complaints none of which overly acute. He is having some neck and left shoulder pain that he thinks could be from using the bowflex machine and doing pushups. Chest pains have been going on for months. He has normal echo/EKG within the last 6 months. Normal EKG and trop today. Chronic neck/back pains from his OI. Has seen neurology and has MRIs scheduled in two days of his head, cervical spine, thoracic spine. At this point I do not have any concern for life-threatening etiology from the emergency department today. He is stable for discharge with follow-up with his special tests. He does have cardiology follow-up next week as well. Return to ED precautions given. Medical Records I reviewed the patient's medical records. Lab Data I reviewed the patient's lab results. 07/20/24 14:06 07/20/24 14:06 Radiology Impressions Chest X-Ray 07/20/24 13:01 IMPRESSION: 1. Negative chest. Laboratory Results WBC 9.64 10^3/uL (3.29-11.43) 07/20/24 14:06 RBC 5.02 10^6/uL (3.85-5.65) 07/20/24 14:06 Hgb 15.30 g/dL (11.27-16.99) 07/20/24 14:06 Hct 45.0 % (37-53) 07/20/24 14:06 MCV 89.6 fl (82-101) 07/20/24 14:06 MCH 30.5 pg (27-33) 07/20/24 14:06 MCHC 34.0 g/dL (30-55) 07/20/24 14:06 RDW 12.1 % (12.1-15.1) 07/20/24 14:06 Plt Count 327 10^3/cmm (157-399) 07/20/24 14:06 MPV 8.0 fL (7.4-10.4) 07/20/24 14:06 Neut % (Auto) 69.5 % 07/20/24 14:06 Lymph % (Auto) 21.7 % 07/20/24 14:06 [place] % (Auto) 7.1 % 07/20/24 14:06 Eos % (Auto) 0.8 % 07/20/24 14:06 Baso % (Auto) 0.6 % 07/20/24 14:06 Neut # (Auto) 6.70 10^3/uL (1.8-7.7) 07/20/24 14:06 Lymph # (Auto) 2.1 10^3/uL (0.8-4.8) 07/20/24 14:06 [place] # (Auto) 0.7 10^3/uL (0.2-0.9) 07/20/24 14:06 Eos # (Auto) 0.1 10^3/uL (0.0-0.8) 07/20/24 14:06 Baso # (Auto) 0.1 10^3/uL (0.0-0.1) 07/20/24 14:06 Nucleated RBC % (auto) 0 % 07/20/24 14:06 Nucleated RBCs # 0.0 /100WBC 07/20/24 14:06 Sodium 137 mmol/L (136-145) 07/20/24 14:06 Potassium 3.8 mmol/L (3.5-5.1) 07/20/24 14:06 Chloride 99 mmol/L (98-107) 07/20/24 14:06 Carbon Dioxide 25 mmol/L (22-29) 07/20/24 14:06 Anion Gap 16.8 (5-19) 07/20/24 14:06 BUN 20 mg/dL (6-20) 07/20/24 14:06 Creatinine 0.6 mg/dL (0.7-1.2) L 07/20/24 14:06 GFR Calculation 145.0 mL/min (90-130) H 07/20/24 14:06 Glucose 99 mg/dL (65-115) 07/20/24 14:06 Calculated Osmolality 287 mOsm/kg (285-295) 07/20/24 14:06 Calcium 9.0 mg/dL (8.5-10.5) 07/20/24 14:06 Total Bilirubin 0.5 mg/dL (0.15-1.2) 07/20/24 14:06 AST 16 U/L (0-40) 07/20/24 14:06 ALT 20 U/L (0-41) 07/20/24 14:06 Alkaline Phosphatase 77 U/L (40-130) 07/20/24 14:06 Troponin T Baseline < 6 ng/L (0-15) 07/20/24 14:06 Total Protein 7.3 g/dL (6.6-8.7) 07/20/24 14:06 Albumin 4.8 g/dL (3.5-5.2) 07/20/24 14:06 Globulin 2.5 g/dL (1.3-4.6) 07/20/24 14:06 All radiology interpretation(s) finalized by discharge Discharge Plan Discharge Patient Disposition: Home Clinical Impression: Chest pain Qualifiers: Chest pain type: unspecified Qualified Code(s): R07.9 - Chest pain, unspecified Condition: Stable Prescriptions: No Action aspirin [Adult Low Dose Aspirin] 81 mg tablet,delayed release (DR/EC) 81 mg PO QAM lisinopril 20 mg tablet 20 mg PO DAILY testosterone 20.25 mg/1.25 gram (1.62 %) gel in metered-dose pump See Rx Instructions .ROUTE .COMPLEX Rx Instructions: Use 1 pump every 3 to 4 days. omeprazole 40 mg capsule,delayed release(DR/EC) 40 mg PO DAILY Discharge Orders: Discharge ED (Routine); Ordered 07/20/24 Ordered By: Katharine Khanna Referrals: Ruslan Choi MD [Primary Care Provider] - Activity Restrictions/Additional Instructions: As we discussed your cardiac workup here is reassuring. Please follow-up with cardiology next week as currently scheduled. Continue to follow-up with your neurologist later this week for your MRI imaging. Coding Level of Care Code ED Educational Speech Language Clinician for Magalys Bland
[2024-07-20 14:13] LABS: Basophils # 0.1 10^3/uL (0.0-0.1); Basophils % 0.6 %; Eosinophils # 0.1 10^3/uL (0.0-0.8); Eosinophils % 0.8 %; Lymphocytes # 2.1 10^3/uL (0.8-4.8); Lymphocytes % 21.7 %; Mean Corpuscular Hemoglobin 30.5 pg (27-33); Mean Corpuscular Volume 89.6 fl (82-101); Monocytes # 0.7 10^3/uL (0.2-0.9); Monocytes % 7.1 %; Neutrophils % 69.5 %; Nucleated Red Blood Cells % 0 %; Platelet Count 327 10^3/cmm (157-399); Red Blood Count 5.02 10^6/uL (3.85-5.65); Red Cell Distribution Width 12.1 % (12.1-15.1); White Blood Count 9.64 10^3/uL (3.29-11.43)
[2024-07-20 14:30] LABS: Troponin(5th) Baseline < 6 ng/L (0-15)
[2024-07-20 14:35] LABS: Alanine Aminotransferase 20 U/L (0-41); Albumin Level 4.8 g/dL (3.5-5.2); Alkaline Phosphatase 77 U/L (40-130); Anion Gap 16.8 (5-19); Aspartate Amino Transferase 16 U/L (0-40); Blood Urea Nitrogen 20 mg/dL (6-20); Carbon Dioxide 25 mmol/L (22-29); Chloride 99 mmol/L (98-107); Creatinine Clr Calc Pharmacy 123.3728; Globulin 2.5 g/dL (1.3-4.6); Glucose 99 mg/dL (65-115); Osmolality Calculated 287 mOsm/kg (285-295); Potassium 3.8 mmol/L (3.5-5.1); Sodium 137 mmol/L (136-145); Total Bilirubin 0.5 mg/dL (0.15-1.2); Total Protein 7.3 g/dL (6.6-8.7)
--- NOTE | 2024-07-20 19:01 | ECG_ITS ---
[facility] Test Date: 2024-07-20 Pat Name: Jacobo Odom Department: Room: Gender: Male Circular Clerk: : 1980 Requested By: Mary May Order Number: [id number] Wilma MD: Aravind Wolfe M.D. Measurements Intervals [place] Rate: 79 P: 34 DE: 145 QRS: 31 QRSD: 93 T: 36 QT: 350 QTc: 402 Interpretive Statements SINUS RHYTHM Compared to ECG 09/15/2023 10:36:56 Sinus arrhythmia no longer present Electronically Signed On 07-20-2024 13:16:24 CDT by Aravind Wolfe M.D. [email or web address], [id number]
== END 2024-07-20 15:25 | disposition home or self-care (01) ==
PROVIDERS: Emergency Medicine; Emergency Provider Physician Assistant; PCP Family Medicine
DX: R07.9 Chest pain, unspecified (principal); Z79.82 Long term (current) use of aspirin; Z79.890 Hormone replacement therapy; I10 Essential (primary) hypertension; F17.210 Nicotine dependence, cigarettes, uncomplicated
CPT/HCPCS: 71045; 80053; 84484; 85025; 93005; 99285

== ENCOUNTER 2024-10-27 10:09 | Emergency (ER) | payer MEDICARE, SELFPAY ==
[2024-10-27 10:13] VITALS: BP 141/90; PULSE 73; RESP 18; TEMP 36.8; O2SAT 100; BMI 26.4
--- NOTE | 2024-10-27 10:38 | MR_ITS ---
WS: [id number] MRI BRAIN WITHOUT CONTRAST HISTORY: RUE tingling, headache, double/blurry vision COMPARISON: 11/29/2014 TECHNIQUE: Diffusion imaging, multiplanar T1, T2 and FLAIR imaging obtained. No evidence for acute infarct or hemorrhage. Shah-white matter differentiation is normal. No remote or acute infarcts are volume loss. Previously described very tiny lacunar infarct in the RI GHT cerebellum is poorly visualized on today's exam. Ventricles and extra-axial spaces are normal. Variant cavum septum pellucida et vergae. No inferior displacement of cerebellar tonsils. The sella turcica and pituitary gland are unremarkabl e. Dural venous sinuses and sitka of [place] demonstrate no abnormality on this unenhanced studies. Paranasal sinuses: Clear. Mastoid air cells: Normal. Calvarium and scalp: Intact. MR/MR head wo con* [id number] IMPRESSION: 1. No acute infarct. Diffusion imaging is normal. 2. No significant atrophy. No significant small vessel disease.
--- NOTE | 2024-10-27 10:41 | W.ED.HA ---
HPI - Headache General: Chief Complaint: Headache Stated Complaint: Stiff neck, back of head pain, R. arm feels numb Time Seen by Provider: 10/27/24 10:26 History of Present Illness: 44-year-old male presents emergency department along with and child. Patient reports he started having a headache gradual onset 3 days ago. Its mostly in the base and back of his head. He reports he has been having neck pain even longer. He denies any injury to his neck. 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 He had to have surgery in both of his femurs and tibias. He has spinal stenosis in the L5-S1 region. 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 He is currently following with neurosurgery for his low back. Patient reports he has a sensation like his right arm is bigger than it is and it feels tingly. He can still feel touch and has no problems with coordination or motor but it just feels like it is tingling. Patient also complains that his vision is blurry. When he holds things at about arms length it comes into focus. He reports that he has a little bit of double vision when things are in close and when he holds them out, it gets better. Reported history of possible stroke in the past. I can find no documentation of this. Patient reports he never had any deficits from this possible stroke. I do see documented a history of brain aneurysm in past medical history. He takes no medications other than lisinopril, testosterone and omeprazole. Related Data Home Medications Medication Instructions Recorded Confirmed aspirin 81 mg tablet,delayed 81 mg PO QAM 07/03/20 10/27/24 release (Adult Low Dose Aspirin) testosterone 1 pump topical DAILY 05/31/22 10/27/24 omeprazole 40 mg capsule,delayed 40 mg PO DAILY 12/23/23 10/27/24 release lisinopril 20 mg tablet 20 mg PO DAILY 07/20/24 10/27/24 acetaminophen 325 mg tablet 650 mg PO QID PRN Pain 10/27/24 10/27/24 (Tylenol) multivitamin with minerals-folic 2 tab PO DAILY 10/27/24 10/27/24 acid 200 mcg chewable tablet (Adult One Daily Gummies) Previous Rx's Medication Instructions Recorded cyclobenzaprine 5 mg tablet 5 mg PO TID PRN muscle spasm #20 10/27/24 tabs naproxen 250 mg tablet 250 mg PO BID PRN pain #20 tabs 10/27/24 Allergies Allergy/AdvReac Type Severity Reaction Status Date / Time codeine Allergy Intermediate aldy-hives Verified 02/20/24 10:29 meperidine [From Demerol] Allergy Intermediate ALGY-Hives Verified 02/20/24 10:29 tramadol Allergy Unknown Unknown Verified 02/20/24 10:29 Opioids-Methadone and Related Allergy Unknown Verified 02/20/24 10:29 methadone AdvReac Intermediate ADR-Nausea Verified 02/20/24 10:29 Review of Systems Narrative: Patient endorses headache, neck pain, upper back pain, tingling in the right upper extremity, double and blurry vision that gets better when he holds things out at arms length. He denies any cough, chest pain, lightheadedness, syncope, abdominal pain, nausea, vomiting, diarrhea, bloody stools, rashes, wounds, facial drooping, any numbness/weakness/coordination problems in any other extremities. [facility] ED PFSH: Medical History Hypertension Osteogenesis imperfecta Mitral valve prolapse Chronic back pain Vertebral artery dissection Scoliosis Brain aneurysm Hypokalemia Vitamin D deficiency Social History Smoking and tobacco/nicotine status: current every day tobacco/nicotine user cigarettes Quit status (tobacco/nicotine): has quit using Year quit tobacco: 2013 Alcohol intake: never Substance/Drug Use: former Physical Exam Narrative: EXAM NARRATIVE: Appears stated age. Anxious. No acute distress. Const: COMMON NORMALS: no limitations, alert and well nourished (Shortened stature) EXAM LIMITATIONS: no altered mental status HENMT: COMMON NORMALS: normocephalic, atraumatic and external ears normal HEAD & SCALP: normocephalic and atraumatic EXTERNAL EAR: Yes external ears normal MOUTH: no muffled voice Eye: COMMON NORMALS: EOMs intact bilaterally, conjunctivae normal and no scleral icterus CONJUNCTIVA: Yes conjunctivae normal Neck/C-Spine: COMMON NORMALS: no JVD GENERAL: Yes normal visual inspection and Yes trachea midline Resp: COMMON NORMALS: normal respiratory effort, No use of accessory muscles and clear to auscultation bilaterally AUSCULTATION: clear to auscultation bilaterally Cardio: COMMON NORMALS: no JVD, regular rate and regular rhythm RATE: regular rate RHYTHM: regular rhythm GI: COMMON NORMALS: Soft to palpation and non-tender PALPATION: Yes Soft to palpation and No Guarding due to palpation present (GI) Back/Pelvis: OTHER: Patient is wearing a lumbar support for his spinal stenosis. Patient does have significant myofascial tenderness throughout the trapezius muscles, paracervical muscles, rhomboid area, and other periscapular muscles. He does not have any meningeal signs. He does not have any focal midline tenderness. Range of motion of the neck is within normal limits. Extremity: COMMON NORMALS: negative for normal to inspection (Shortened lower extremities, history of osteogenesis imperfecta and surgery) Neuro: COMMON NORMALS: moves all extremities, no focal motor deficits and no sensory deficits noted SENSORIUM/ORIENTATION: Yes alert SPEECH: speech normal OTHER: Awake, alert, oriented, normal speech. Cranial nerves grossly normal. Normal strength throughout both upper extremities to push and pull. [employer] strength normal. Patient endorses subjective feeling like his right arm is bigger than it is and a tingling sensation. He endorses no numbness when I palpate along his arm. Psych: COMMON NORMALS: mental status grossly normal, Normal thought process present, cooperative and speech normal; negative for normal affect (Anxious) SPEECH: Yes normal speech THOUGHT PROCESS: Normal thought process present Skin: COMMON NORMALS: no rashes or lesions noted, turgor normal and no jaundice GENERAL SKIN EXAM: no rashes or lesions noted and turgor normal Course ED course: Patient's brain MRI did not show any abnormalities to explain the patient's symptoms. No stroke. No bleeding. No masses. CTA of the head did not show any aneurysm or large vessel occlusion. The patient has been ambulatory throughout the emergency department without any apparent distress. Labs are unremarkable. The patient's paresthesias may be due to cervical radiculopathy. This could also explain some of his pain. Additionally, the patient was showing signs of anxiety and this also could result in paresthesias and myofascial pain. Patient has follow-up with neurology. At this time he is safe for discharge. No further emergent workup or hospital admission recommended at this time Vital Signs: Vital signs: Vital Signs Temperature 98.2 F 10/27/24 10:13 Pulse Rate 73 10/27/24 10:13 Respiratory Rate 18 10/27/24 10:13 Blood Pressure 141/90 10/27/24 10:13 Pulse Oximetry 100 10/27/24 10:13 Oxygen Delivery Me thod Room Air 10/27/24 10:13 MDM - Headache Medical Decision Making The differential diagnosis is broad. I suspect his headache is coming from myofascial pain in the neck and upper back. However, he has this vague history of stroke and I see documented a history of aneurysm on his past medical history. He says the headache was gradual in onset and he does not have any meningeal signs. However with that history and the report of some tingling in the right upper extremities; I am going to do a CTA of his head and neck and an MRI of his brain to rule out any strokes both ischemic, and hemorrhagic. Additionally, the CTA will help evaluate if there is any further aneurysm. I have a low suspicion for meningitis. Patient also has a history of bulging disc in his neck on recent MRI, per his report. Cervical radiculopathy with paresthesias in the right upper extremity is possible. This could also explain his neck pain which over time could cause myofascial spasm and tightness, leading to pain in the base of the head as well. Patient used to have a problem with opiates. He asked for nonnarcotic pain management here. Lab Data 10/27/24 11:30 10/27/24 11:30 Radiology Impressions Head MRI 10/27/24 10:38 IMPRESSION: 1. No acute infarct. Diffusion imaging is normal. 2. No significant atrophy. No significant small vessel disease. Head/Neck CTA 10/27/24 10:46 IMPRESSION: 1. No large vessel occlusion or aneurysm. 2. No acute intracranial findings. IMPRESSION: No stenosis or occlusion. REFERENCES: NASCET CRITERIA. The degree of stenosis in the cervical segment of the internal carotid artery is based on NASCET criteria. Normal is no stenosis. Mild is less than 50% stenosis. Moderate is 50-69% stenosis. Severe is 70% to 99% stenosis. Total occlusion is no detectable patent lumen. Laboratory Results WBC 7.99 10^3/uL (3.29-11.43) 10/27/24 11:30 RBC 5.10 10^6/uL (3.85-5.65) 10/27/24 11:30 Hgb 16.00 g/dL (11.27-16.99) 10/27/24 11:30 Hct 46.5 % (37-53) 10/27/24 11:30 MCV 91.2 fl (82-101) 10/27/24 11:30 MCH 31.4 pg (27-33) 10/27/24 11:30 MCHC 34.4 g/dL (30-55) 10/27/24 11:30 RDW 12.2 % (12.1-15.1) 10/27/24 11:30 Plt Count 323 10^3/cmm (157-399) 10/27/24 11:30 MPV 8.0 fL (7.4-10.4) 10/27/24 11:30 Neut % (Auto) 69.6 % 10/27/24 11:30 Lymph % (Auto) 22.8 % 10/27/24 11:30 Ripley % (Auto) 6.3 % 10/27/24 11:30 Eos % (Auto) 0.4 % 10/27/24 11:30 Baso % (Auto) 0.6 % 10/27/24 11:30 Neut # (Auto) 5.57 10^3/uL (1.8-7.7) 10/27/24 11:30 Lymph # (Auto) 1.8 10^3/uL (0.8-4.8) 10/27/24 11:30 Ripley # (Auto) 0.5 10^3/uL (0.2-0.9) 10/27/24 11:30 Eos # (Auto) 0.0 10^3/uL (0.0-0.8) 10/27/24 11:30 Baso # (Auto) 0.1 10^3/uL (0.0-0.1) 10/27/24 11:30 Nucleated RBC % (auto) 0 % 10/27/24 11:30 Nucleated RBCs # 0.0 /100WBC 10/27/24 11:30 Sodium 138 mmol/L (136-145) 10/27/24 11:30 Potassium 3.9 mmol/L (3.5-5.1) 10/27/24 11:30 Chloride 100 mmol/L (98-107) 10/27/24 11:30 Carbon Dioxide 26 mmol/L (22-29) 10/27/24 11:30 Anion Gap 15.9 (5-19) 10/27/24 11:30 BUN 18 mg/dL (6-20) 10/27/24 11:30 Creatinine 0.7 mg/dL (0.7-1.2) 10/27/24 11:30 GFR Calculation 121.4 mL/min (90-130) 10/27/24 11:30 Glucose 97 mg/dL (65-115) 10/27/24 11:30 Calculated Osmolality 288 mOsm/kg (285-295) 10/27/24 11:30 Calcium 9.5 mg/dL (8.5-10.5) 10/27/24 11:30 Total Bilirubin 0.3 mg/dL (0.15-1.2) 10/27/24 11:30 AST 15 U/L (0-40) 10/27/24 11:30 ALT 17 U/L (0-41) 10/27/24 11:30 Alkaline Phosphatase 82 U/L (40-130) 10/27/24 11:30 Total Protein 7.8 g/dL (6.6-8.7) 10/27/24 11:30 Albumin 4.9 g/dL (3.5-5.2) 10/27/24 11:30 Globulin 2.9 g/dL (1.3-4.6) 10/27/24 11:30 All radiology interpretation(s) finalized by discharge Discharge Plan Discharge Patient Disposition: Home Clinical Impression: Myofascial neck pain, Cervicalgia, Arm paresthesia, right Condition: Stable Prescriptions: New naproxen 250 mg tablet 250 mg PO BID PRN (Reason: pain) Qty: 20 0RF cyclobenzaprine 5 mg tablet 5 mg PO TID PRN (Reason: muscle spasm) Qty: 20 0RF Discontinued cyclobenzaprine [Flexeril] 10 mg Tablet 2.5 mg PO TID PRN (Reason: Pain) No Action aspirin [Adult Low Dose Aspirin] 81 mg tablet,delayed release (DR/EC) 81 mg PO QAM lisinopril 20 mg tablet 20 mg PO DAILY testosterone 20.25 mg/1.25 gram (1.62 %) gel in metered-dose pump 1 pump topical DAILY omeprazole 40 mg capsule,delayed release(DR/EC) 40 mg PO DAILY acetaminophen [Tylenol] 325 mg Tablet 650 mg PO QID PRN (Reason: Pain) multivit with min-folic acid [Adult One Daily Gummies] 200 mcg Tablet,Chewable 2 tab PO DAILY Discharge Orders: Discharge ED (Routine); Ordered 10/27/24 Ordered By: Adria Patino Referrals: Ruslan Choi MD [Primary Care Provider] - 7-10 days Patient Instructions: Acute Neck Pain (ED), Pain Management Activity Restrictions/Additional Instructions: You do not have any evidence of strokes, aneurysms, brain masses, or other causes inside of your skull. You do have a history of bulging disks in your neck which could be contributing. You have significant myofascial tenderness and spasm in your neck and upper back which are very likely contributing. Please use a heating pad, massage, stretching to help alleviate pain. You may take naproxen twice a day as needed. You may add Tylenol up to 3 g/day for additional pain control. Please follow-up with neurosurgery as planned for your back and you can inquire about your neck while you are there. Coding Level of Care Code ED Welfare Eligibility Worker for Magalys Bland
--- NOTE | 2024-10-27 10:46 | CTR_ITS ---
PROCEDURE INFORMATION: Exam: CTA Head Without And With Contrast, Arteriography Exam date and time: 10/27/2024 12:24 PM Age: 44 years old Clinical indication: Headache; Additional info: HX aneurysm: Headache and neck pain with right arm tingling TECHNIQUE: Imaging protocol: Computed tomographic angiography of the head without and with contrast. Exam focused on the arteries. 3D rendering (Not supervised by radiologist): MIP and/or 3D reconstructed images were created by the technologist. Radiation optimization: All CT scans at this facility use at least one of these dose optimization techniques: automated exposure control; mA and/or kV adjustment per patient size (includes targeted exams where dose is matched to clinical indication); or iterative reconstruction. Contrast material: OMNI 350; Contrast volume: 100 ml; Contrast route: INTRAVENOUS (IV); COMPARISON: 1. MR head wo con* [id number] 10/27/2024 11:[address] angio headneck* [id number] 12/20/2017 4:[address] head wo con* [id number] 12/20/2017 3:03 PM RADIATION DOSE METRICS: Total DLP (mGy-cm): 939.93 FINDINGS: ANTERIOR CIRCULATION: Right internal carotid artery: Intracranial segment is patent with no significant stenosis or occlusion. No aneurysm. Right middle cerebral artery: No occlusion or significant stenosis. No aneurysm. Right anterior cerebral artery: No occlusion or significant stenosis. No aneurysm. Left internal carotid artery: Intracranial segment is patent with no significant stenosis. No aneurysm. Left middle cerebral artery: No occlusion or significant stenosis. No aneurysm. Left anterior cerebral artery: No occlusion or significant stenosis. No aneurysm. POSTERIOR CIRCULATION: Right vertebral artery: No occlusion or significant stenosis. No aneurysm. Left vertebral artery: No occlusion or significant stenosis. No aneurysm. Basilar artery: No occlusion or significant stenosis. No aneurysm. Right posterior cerebral artery: No occlusion or significant stenosis. No aneurysm. Left posterior cerebral artery: No occlusion or significant stenosis. No aneurysm. HEAD: Brain: No hemorrhage. Preserved dodson-white matter differentiation. Unremarkable white matter. No mass effect. Cerebral ventricles: Ventricles are in proportion to the degree of atrophy. Incidental cavum septum pellucidum et vergae. Bones: Unremarkable. No acute fracture. Paranasal sinuses: Visualized sinuses are normal. No fluid levels. Mastoid air cells: Visualized mastoids are normal. No mastoid effusion. Soft tissues: Unremarkable. PROCEDURE INFORMATION: Exam: CTA Neck With Contrast Exam date and time: 10/27/2024 12:24 PM Age: 44 years old Clinical indication: Headache; Additional info: HX aneurysm: Headache and neck pain with right arm tingling TECHNIQUE: Imaging protocol: Computed tomographic angiography of the neck with contrast. Exam focused on the cervical segments of the vasculature. 3D rendering (Not supervised by radiologist): MIP and/or 3D reconstructed images were created by the technologist. Radiation optimization: All CT scans at this facility use at least one of these dose optimization techniques: automated exposure control; mA and/or kV adjustment per patient size (includes targeted exams where dose is matched to clinical indication); or iterative reconstruction. Contrast material: OMNI 350; Contrast volume: 100 ml; Contrast route: INTRAVENOUS (IV); COMPARISON: 1. CT angio headneck* [id number] 12/20/2017 4:01 PM 2. MR head wo con* [id number] 10/27/2024 11:[address] head wo con* [id number] 12/20/2017 3:03 PM RADIATION DOSE METRICS: Total DLP (mGy-cm): 939.93 FINDINGS: Right common carotid artery: No stenosis. No dissection or occlusion. Right internal carotid artery: No stenosis of the extracranial segment. No dissection or occlusion. Right external carotid artery: No occlusion or stenosis of the origin. Left common carotid artery: No stenosis. No dissection or occlusion. Left internal carotid artery: No stenosis of the extracranial segment. No dissection or occlusion. Left external carotid artery: No occlusion or stenosis of the origin. Right vertebral artery: No stenosis. No dissection or occlusion. Left vertebral artery: No stenosis. No dissection or occlusion. Soft tissues: Unremarkable. No significant soft tissue swelling. Bones/joints: No acute fracture. CT/CT angio headneck* [id number] IMPRESSION: 1. No large vessel occlusion or aneurysm. 2. No acute intracranial findings. IMPRESSION: No stenosis or occlusion. REFERENCES: NASCET CRITERIA. The degree of stenosis in the cervical segment of the internal carotid artery is based on NASCET criteria. Normal is no stenosis. Mild is less than 50% stenosis. Moderate is 50-69% stenosis. Severe is 70% to 99% stenosis. Total occlusion is no detectable patent lumen.
[2024-10-27 11:00] VITALS: BP 137/94; PULSE 61; O2SAT 98
[2024-10-27 11:30] VITALS: BP 128/87; PULSE 73; O2SAT 97
[2024-10-27 11:39] LABS: Basophils # 0.1 10^3/uL (0.0-0.1); Basophils % 0.6 %; Eosinophils % 0.4 %; Hematocrit 46.5 % (37-53); Lymphocytes # 1.8 10^3/uL (0.8-4.8); Lymphocytes % 22.8 %; Mean Corpuscular HGB Conc 34.4 g/dL (30-55); Mean Corpuscular Hemoglobin 31.4 pg (27-33); Mean Corpuscular Volume 91.2 fl (82-101); Monocytes # 0.5 10^3/uL (0.2-0.9); Monocytes % 6.3 %; Neutrophils # 5.57 10^3/uL (1.8-7.7); Neutrophils % 69.6 %; Nucleated Red Blood Cells % 0 %; Platelet Count 323 10^3/cmm (157-399); Red Cell Distribution Width 12.2 % (12.1-15.1); White Blood Count 7.99 10^3/uL (3.29-11.43)
--- NOTE | 2024-10-27 11:45 | PC.PHAR ---
Patient states he took an Marijuana Gummy yesterday .
[2024-10-27 12:02] LABS: Alanine Aminotransferase 17 U/L (0-41); Albumin Level 4.9 g/dL (3.5-5.2); Alkaline Phosphatase 82 U/L (40-130); Anion Gap 15.9 (5-19); Aspartate Amino Transferase 15 U/L (0-40); Blood Urea Nitrogen 18 mg/dL (6-20); Calcium 9.5 mg/dL (8.5-10.5); Carbon Dioxide 26 mmol/L (22-29); Chloride 100 mmol/L (98-107); Creatinine Clr Calc Pharmacy 110.8249; Globulin 2.9 g/dL (1.3-4.6); Glomerular Filtration Rate 121.4 mL/min (90-130); Glucose 97 mg/dL (65-115); Osmolality Calculated 288 mOsm/kg (285-295); Potassium 3.9 mmol/L (3.5-5.1); Sodium 138 mmol/L (136-145); Total Bilirubin 0.3 mg/dL (0.15-1.2); Total Protein 7.8 g/dL (6.6-8.7)
[2024-10-27] MEDS: acetaminophen 325 mg Tablet 650 MG PO (12:51)
[2024-10-27] MEDS: ketorolac 30 mg/mL INJ 15 MG IVP (12:51)
[2024-10-27] MEDS: orphenadrine 30 mg/mL Inj 2 mL 60 MG IVP (12:53)
[2024-10-27 13:00] VITALS: BP 131/92; PULSE 73; RESP 24; O2SAT 98
[2024-10-27 13:30] VITALS: BP 117/80; PULSE 63; RESP 20; O2SAT 100
[2024-10-27 13:54] VITALS: BP 129/85; PULSE 63; O2SAT 99
== END 2024-10-27 13:55 | disposition home or self-care (01) ==
PROVIDERS: Emergency Provider Emergency Medicine; PCP Family Medicine
DX: M54.2 Cervicalgia (principal); R20.2 Paresthesia of skin; Z79.82 Long term (current) use of aspirin; F17.210 Nicotine dependence, cigarettes, uncomplicated; I10 Essential (primary) hypertension
CPT/HCPCS: 70496; 70498; 70551; 80053; 85025; 96374; 96375; 99285; J1885; J2360; Q9967

== ENCOUNTER → 2024-12-02 12:26 | Outpatient (BNVA) | payer MEDICARE, SELFPAY | PROVIDERS: PCP Family Medicine; Visit Provider Internal Medicine | DX: R07.89 Other chest pain (principal); I10 Essential (primary) hypertension; Z87.891 Personal history of nicotine dependence | CPT/HCPCS: 99214 ==